=== PATIENT | female | born 1985 | race Caucasian/White ===

== ENCOUNTER 2023-04-06 12:59 | Outpatient (CLI) | payer BC ==
[2023-04-06 14:07] LABS: #Eosinphils 0.1 10x3/uL (0.0-0.5); #Monocytes 0.4 10x3/uL (0.0-1.1); %Basophils 0.7 % (0.0-2.0); %Eosinophils 1.6 % (0.0-6.0); %Lymphocytes 37.2 % (18.0-47.0); %Monocytes 6.4 % (0.0-10.0); %Neutrophils 53.7 % (40.0-75.0); Hematocrit 36.8 % (34.9-44.5); Mean Corpuscular HGB CONC 32.6 g/dL (32.0-36.0); Mean Platelet Volume 10.3 fl (7.4-10.4); Platelet Count 383 10x3/uL (150-450); RBC Distribution Width 13.5 % (11.5-14.5); White Blood Cell (WBC) Count 5.5 10x3/uL (3.5-10.5)
[2023-04-06 14:17] LABS: BHCG - Serum Negative (NEGATIVE); Pregs Control Background? CLEAR/WHITE (CLR/WHITE); Pregs Control Bar Appear? YES (CONTROL BAR)
[2023-04-06 14:25] LABS: Anion Gap 13 mmol/L (10-20); BUN (Urea Nitrogen) 10 mg/dL (7.0-18.7); Calc. Creatinine Clearance 0 mL/min (70-130); Calcium 9.7 mg/dL (7.8-10.44); Carbon Dioxide 26 mmol/L (22-29); Chloride 105 mmol/L (98-107); Estimated GFR 95; Glucose 107 mg/dL (70-105); Potassium 4.5 mmol/L (3.5-5.1); Sodium 139 mmol/L (136-145)
== END 2023-04-06 13:00 | disposition home or self-care (01) ==
LOC: LABBT 12:59
PROVIDERS: ATTEND Specialist
DX: Z01.812 Encounter for preprocedural laboratory examination (principal); K42.9 Umbilical hernia without obstruction or gangrene
CPT/HCPCS: 80048; 84703; 85025

== ENCOUNTER 2023-04-11 11:04 | Day surgery (SDC) | payer BC ==
[2023-04-06 13:31] VITALS: BMI 21.1
[2023-04-11] MEDS ORDERED: Ketorolac Tromethamine 30 MG (1 mL) VIAL ONE (11:35)
[2023-04-11] MEDS ORDERED: Acetaminophen 500 MG TAB ONE (11:35)
[2023-04-11] MEDS ORDERED: EPINEPHrine 1 MG/ML VIAL ONE (12:16)
[2023-04-11] MEDS ORDERED: Bupivacaine 0.25% HCL 30 ML VIAL ONE (12:17)
[2023-04-11] MEDS ORDERED: fentaNYL 50 mcg/mL 1 mL Vial ONE (13:06)
[2023-04-11] MEDS ORDERED: Lidocaine 1% PF 5 ML VIAL ONE (13:06)
[2023-04-11] MEDS ORDERED: Ondansetron PF 4 MG/2 ML Vial ONE (13:06)
[2023-04-11] MEDS ORDERED: PROPOFOL 20 ML ONE ×2 (13:06→13:25)
[2023-04-11] MEDS ORDERED: Midazolam HCl 2 mg/2 ml Vial ONE (13:06)
[2023-04-11] MEDS ORDERED: Famotidine/PF 20 mg/2ml Vial ONE (13:06)
[2023-04-11] MEDS ORDERED: Sodium Chloride 0.9% 100 ML ONE (13:09)
[2023-04-11] MEDS ORDERED: CEFAZOLIN 2 GM VIAL ONE (13:09)
[2023-04-11] MEDS ORDERED: Dexamethasone 4 mg/ml Vial ONE (13:49)
[2023-04-11] MEDS ORDERED: Meperidine HCl/PF 25 MG (1 mL) VIAL ONE (14:20)
[2023-04-11] MEDS ORDERED: HYDROcodone/Acetaminophen 5/325 mg Tablet ONE (15:23)
== END 2023-04-11 15:40 | disposition home or self-care (01) ==
LOC: SDC 11:04
PROVIDERS: ATTEND Specialist
PROC: 0WUF0JZ Supplement Abdominal Wall with Synthetic Substitute, Open Approach (ICD-10-PCS; principal; 2023-04-11)
DX: K42.9 Umbilical hernia without obstruction or gangrene (principal)
CPT/HCPCS: C1889; J0171; J1100; J1885; J2175; J2250; J2405; J2704; J3010; J3490; S0020; S0028